=== PATIENT | male | born 1960 | race African-American/Black ===

== ENCOUNTER → 2020-05-12 | Outpatient (CLI) | payer BC | END | disposition home or self-care (01) | LOC: MRI 08:00 | PROVIDERS: ATTEND Internal Medicine Critical Care Medicine | DX: M50.221 Other cervical disc displacement at C4-C5 level (principal); M48.03 Spinal stenosis, cervicothoracic region; M48.02 Spinal stenosis, cervical region; G31.9 Degenerative disease of nervous system, unspecified; I67.82 Cerebral ischemia; I63.81 Other cerebral infarction due to occlusion or stenosis of small artery | CPT/HCPCS: 70551; 72141 ==